=== PATIENT | female | born 1935 | race Caucasian/White ===

== ENCOUNTER 2017-11-27 03:45 | Emergency (ER) | payer MEDICARE, MEDICAID ==
[~2017-11-27] VITALS: Ht 162.6 cm; Wt 77.0 kg
[2017-11-27 04:35] LABS: BASOPHILS % (AUTO) 0.2 % (0-1); EOSINOPHILS # (AUTO) 0.2 X10'3 (0-0.9); EOSINOPHILS % (AUTO) 2.9 % (0-6); HEMATOCRIT 39.7 % (35.0-45.0); HEMOGLOBIN 13.5 g/dl (12.0-16.0); LYMPHOCYTES # (AUTO) 3.1 X10'3 (1.1-4.8); LYMPHOCYTES % (AUTO) 41.2 % (21-51); MEAN CORPUSCULAR HEMOGLOBIN 31.6 PG (27.0-31.0); MEAN CORPUSCULAR HGB CONC 33.9 % (33.0-36.5); MEAN CORPUSCULAR VOLUME 93.1 FL (78-98); MEAN PLATELET VOLUME 8.8 FL (7.4-10.4); MONOCYTES # (AUTO) 0.7 X10'3 (0-0.9); MONOCYTES % (AUTO) 8.7 % (2-12); NEUTROPHILS # (AUTO) 3.5 X10'3 (1.8-7.7); PLATELET COUNT 238 X10'3 (140-440); RED BLOOD COUNT 4.27 X10'6 (4.20-5.60); RED CELL DISTRIBUTION WIDTH 13.6 % (11.5-14.5); WHITE BLOOD COUNT 7.5 X10'3 (4.5-11.0)
[2017-11-27 04:46] LABS: PARTIAL THROMBOPLASTIN TIME 26 SECONDS (22-32); PROTHROMBIN TIME 9.9 SECONDS (9.0-12.0)
[2017-11-27 04:50] LABS: ALANINE AMINOTRANSFERASE 22 U/L (12-78); ALBUMIN 3.6 G/DL (3.4-5.0); ALBUMIN/GLOBULIN RATIO 0.9 (1.1-1.5); ALKALINE PHOSPHATASE 69 IU/L (46-116); ANION GAP 10 (8-16); ASPARTATE AMINO TRANSFERASE 16 U/L (10-37); BILIRUBIN,TOTAL 0.4 MG/DL (0.1-1.0); BLOOD UREA NITROGEN 13 MG/DL (7-18); BUN/CREATININE RATIO 16.7 (6.6-38.0); CALCIUM 8.9 MG/DL (8.5-10.1); CHLORIDE 106 MMOL/L (99-107); CREATININE 0.78 MG/DL (0.40-0.90); GLUCOSE 115 MG/DL (70-104); LIPASE 164 U/L (73-393); MAGNESIUM 2.1 MG/DL (1.5-2.4); POTASSIUM 4.2 MMOL/L (3.5-5.1); SODIUM 141 MMOL/L (135-145); TOTAL CARBON DIOXIDE 24.7 MMOL/L (24-32); TOTAL PROTEIN 7.7 G/DL (6.4-8.2); eGFR 71 ML/MIN
[2017-11-27 05:11] LABS: CLARITY,URINE SLIGHTLY CLOUDY (Clear); COLOR,URINE YELLOW (Yellow); GLUCOSE, URINE NEGATIVE (Neg); KETONES,URINE NEGATIVE (Neg); LEUKOCYTE ESTERASE ,URINE SMALL (Neg); NITRITES, URINE NEGATIVE (Neg); OCCULT BLOOD,URINE TRACE-INTACT (Neg); PH,URINE 6.5 (4.8-8.0); PROTEIN,URINE NEGATIVE (Neg); UROBILINOGEN,URINE 0.2 E.U/dL (0.2-1.0)
[2017-11-27 05:16] LABS: UA COLLECTION TYPE CLN CATCH MIDSTREAM
[2017-11-27 05:17] LABS: BACTERIA,URINE FEW /HPF (Neg); RBC,URINE 0-2 /HPF (0-2); SQUAMOUS EPITHELIAL CELL,UR MODERATE /LPF (FEW)
[2017-11-27] MEDS ORDERED: CIPR-230 PO (05:27)
[2017-11-27 05:38] VITALS: BP 140/80
[2017-11-27] MEDS ORDERED: ciprofloxacin 500MG tablet PO ONE (06:00)
== END 2017-11-27 05:40 | disposition home or self-care (01) ==
LOC: ER 03:45
DX: M54.5 Low back pain (principal); R10.9 Unspecified abdominal pain; N39.0 Urinary tract infection, site not specified
CPT/HCPCS: 36415; 71045; 72131; 74176; 80053; 81001; 83690; 83735; 85025; 85610; 85730; 87088; 99285

== ENCOUNTER 2018-05-15 12:34 | Emergency (ER) | payer MEDICARE, MEDICAID ==
[~2018-05-15] VITALS: Ht 162.6 cm; Wt 79.7 kg
[2018-05-15 13:14] VITALS: BP 171/87
[2018-05-15 13:36] LABS: CLARITY,URINE SLIGHTLY CLOUDY (Clear); COLOR,URINE YELLOW (Yellow); GLUCOSE, URINE NEGATIVE (Neg); KETONES,URINE NEGATIVE (Neg); LEUKOCYTE ESTERASE ,URINE NEGATIVE (Neg); NITRITES, URINE NEGATIVE (Neg); OCCULT BLOOD,URINE MODERATE (Neg); PH,URINE 5.5 (4.8-8.0); PROTEIN,URINE NEGATIVE (Neg); UROBILINOGEN,URINE 0.2 E.U/dL (0.2-1.0)
[2018-05-15 13:42] LABS: UA COLLECTION TYPE CLN CATCH MIDSTREAM
[2018-05-15 13:53] LABS: MUCUS STRANDS MANY /LPF (Neg); SQUAMOUS EPITHELIAL CELL,UR MANY /LPF (FEW)
[2018-05-15 13:55] LABS: BACTERIA,URINE NONE SEEN /HPF (Neg); RBC,URINE 0-2 /HPF (0-2); WBC,URINE 0-4 /HPF (0-4)
== END 2018-05-15 16:47 | disposition left against medical advice (07) ==
LOC: ER 12:34
DX: N39.0 Urinary tract infection, site not specified (principal); Z53.21 Procedure and treatment not carried out due to patient leaving prior to being seen by health care provider
CPT/HCPCS: 81001; 99281

== ENCOUNTER 2019-02-07 17:26 | Emergency (ER) | payer MEDICARE, MEDICAID ==
[~2019-02-07] VITALS: Ht 162.6 cm; Wt 86.4 kg
[2019-02-07 17:56] LABS: BASOPHILS % (AUTO) 0.5 % (0-1); EOSINOPHILS # (AUTO) 0.1 X10'3 (0-0.9); EOSINOPHILS % (AUTO) 1.8 % (0-6); HEMOGLOBIN 12.7 g/dl (12.0-16.0); LYMPHOCYTES # (AUTO) 3.1 X10'3 (1.1-4.8); LYMPHOCYTES % (AUTO) 42.2 % (21-51); MEAN CORPUSCULAR HEMOGLOBIN 32.1 PG (27.0-31.0); MEAN CORPUSCULAR HGB CONC 34.5 g/dL (33.0-36.5); MEAN CORPUSCULAR VOLUME 93.1 FL (78-98); MEAN PLATELET VOLUME 8.9 FL (7.4-10.4); MONOCYTES # (AUTO) 0.7 X10'3 (0-0.9); MONOCYTES % (AUTO) 9.8 % (2-12); NEUTROPHILS # (AUTO) 3.4 X10'3 (1.8-7.7); NEUTROPHILS % (AUTO) 45.7 % (42-75); PLATELET COUNT 215 X10'3 (140-440); RED BLOOD COUNT 3.97 X10'6 (4.20-5.60); RED CELL DISTRIBUTION WIDTH 13.8 % (11.5-14.5); WHITE BLOOD COUNT 7.4 X10'3 (4.5-11.0)
[2019-02-07 18:19] LABS: PARTIAL THROMBOPLASTIN TIME 25 SECONDS (22-32)
[2019-02-07 18:43] LABS: ALANINE AMINOTRANSFERASE 21 U/L (12-78); ALBUMIN 3.3 G/DL (3.4-5.0); ALBUMIN/GLOBULIN RATIO 0.8 (1.1-1.5); ALKALINE PHOSPHATASE 67 IU/L (46-116); ANION GAP 7 (8-16); ASPARTATE AMINO TRANSFERASE 15 U/L (10-37); BILIRUBIN,TOTAL 0.3 MG/DL (0.1-1.0); BLOOD UREA NITROGEN 13 MG/DL (7-18); BUN/CREATININE RATIO 15.9 (6.6-38.0); CALCIUM 8.5 MG/DL (8.5-10.1); CHLORIDE 106 MMOL/L (99-107); CREATININE 0.82 MG/DL (0.40-0.90); GLUCOSE 123 MG/DL (70-104); SODIUM 139 MMOL/L (135-145); TOTAL CARBON DIOXIDE 26.1 MMOL/L (24-32); TOTAL PROTEIN 7.2 G/DL (6.4-8.2); eGFR 67 ML/MIN
[2019-02-07 19:24] LABS: CLARITY,URINE CLEAR (Clear); COLOR,URINE STRAW (Yellow); GLUCOSE, URINE NEGATIVE (Neg); KETONES,URINE NEGATIVE (Neg); LEUKOCYTE ESTERASE ,URINE NEGATIVE (Neg); NITRITES, URINE NEGATIVE (Neg); OCCULT BLOOD,URINE TRACE-INTACT (Neg); PH,URINE 6.5 (4.8-8.0); PROTEIN,URINE NEGATIVE (Neg); UROBILINOGEN,URINE 0.2 E.U/dL (0.2-1.0)
[2019-02-07 19:25] LABS: UA COLLECTION TYPE CLN CATCH MIDSTREAM
[2019-02-07 19:34] LABS: SQUAMOUS EPITHELIAL CELL,UR FEW /LPF (FEW)
[2019-02-07 19:35] LABS: RBC,URINE 0-2 /HPF (0-2)
[2019-02-07 19:36] LABS: BACTERIA,URINE NONE SEEN /HPF (Neg); WBC,URINE NONE SEEN /HPF (0-4)
[2019-02-07 19:50] VITALS: BP 120/76
== END 2019-02-07 20:31 | disposition home or self-care (01) ==
LOC: ER 17:26
DX: R07.89 Other chest pain (principal)
CPT/HCPCS: 36415; 71045; 80053; 81001; 84484; 85025; 85610; 85730; 87088; 93005; 99284

== ENCOUNTER 2019-05-09 12:22 | Emergency (ER) | payer MEDICARE, MEDICAID ==
[~2019-05-09] VITALS: Ht 162.6 cm; Wt 82.7 kg
[2019-05-09 13:19] LABS: CLARITY,URINE CLEAR (Clear); COLOR,URINE YELLOW (Yellow); GLUCOSE, URINE NEGATIVE (Neg); KETONES,URINE TRACE mg/dl (Neg); LEUKOCYTE ESTERASE ,URINE NEGATIVE (Neg); NITRITES, URINE NEGATIVE (Neg); OCCULT BLOOD,URINE SMALL (Neg); PROTEIN,URINE NEGATIVE (Neg); UROBILINOGEN,URINE 0.2 E.U/dL (0.2-1.0)
[2019-05-09 13:26] LABS: BASOPHILS % (AUTO) 0.4 % (0-1); EOSINOPHILS # (AUTO) 0.1 X10'3 (0-0.9); HEMATOCRIT 40.2 % (35.0-45.0); HEMOGLOBIN 13.4 g/dl (12.0-16.0); LYMPHOCYTES # (AUTO) 2.7 X10'3 (1.1-4.8); LYMPHOCYTES % (AUTO) 34.9 % (21-51); MEAN CORPUSCULAR HEMOGLOBIN 31.3 PG (27.0-31.0); MEAN CORPUSCULAR HGB CONC 33.3 g/dL (33.0-36.5); MEAN CORPUSCULAR VOLUME 93.9 FL (78-98); MEAN PLATELET VOLUME 8.9 FL (7.4-10.4); MONOCYTES # (AUTO) 0.6 X10'3 (0-0.9); MONOCYTES % (AUTO) 8.2 % (2-12); NEUTROPHILS # (AUTO) 4.3 X10'3 (1.8-7.7); NEUTROPHILS % (AUTO) 55.5 % (42-75); PLATELET COUNT 216 X10'3 (140-440); RED BLOOD COUNT 4.28 X10'6 (4.20-5.60); RED CELL DISTRIBUTION WIDTH 14.1 % (11.5-14.5); WHITE BLOOD COUNT 7.8 X10'3 (4.5-11.0)
[2019-05-09 13:29] LABS: UA COLLECTION TYPE CLN CATCH MIDSTREAM
[2019-05-09] MEDS ORDERED: ibuprofen tablet 400 MG TABLET PO ONE (13:35)
[2019-05-09] MEDS ORDERED: acetaminophen 325mg tablet PO ONE (13:35)
[2019-05-09 13:39] LABS: BACTERIA,URINE NONE SEEN /HPF (Neg); MUCUS STRANDS FEW /LPF (Neg); RBC,URINE 0-2 /HPF (0-2); SQUAMOUS EPITHELIAL CELL,UR FEW /LPF (FEW); WBC,URINE 0-4 /HPF (0-4)
[2019-05-09 13:40] VITALS: BP 146/95
[2019-05-09 13:41] LABS: ALANINE AMINOTRANSFERASE 25 U/L (12-78); ALBUMIN 3.7 G/DL (3.4-5.0); ALBUMIN/GLOBULIN RATIO 0.9 (1.1-1.5); ALKALINE PHOSPHATASE 59 IU/L (46-116); ANION GAP 11 (8-16); ASPARTATE AMINO TRANSFERASE 15 U/L (10-37); BILIRUBIN,TOTAL 0.3 MG/DL (0.1-1.0); BLOOD UREA NITROGEN 16 MG/DL (7-18); BUN/CREATININE RATIO 16.7 (6.6-38.0); CALCIUM 8.6 MG/DL (8.5-10.1); CHLORIDE 107 MMOL/L (99-107); CREATININE 0.96 MG/DL (0.40-0.90); GLUCOSE 112 MG/DL (70-104); SODIUM 141 MMOL/L (135-145); TOTAL CARBON DIOXIDE 23.5 MMOL/L (24-32); TOTAL PROTEIN 7.7 G/DL (6.4-8.2); eGFR 56 ML/MIN
[2019-05-09] MEDS ORDERED: LIDOcaine 5% patch TP ONE (13:45)
== END 2019-05-09 14:27 | disposition home or self-care (01) ==
LOC: ER 12:22
DX: M54.5 Low back pain (principal); R30.0 Dysuria; R94.31 Abnormal electrocardiogram [ECG] [EKG]
CPT/HCPCS: 36415; 80053; 81001; 85025; 85610; 93005; 99284

== ENCOUNTER 2022-06-05 14:58 | Emergency (ER) | payer MEDICARE, MEDICAID ==
[~2022-06-05] VITALS: Ht 162.6 cm; Wt 75.0 kg
[2022-06-05 15:49] LABS: BASOPHILS % (AUTO) 0.6 % (0-1); EOSINOPHILS # (AUTO) 0.1 X10'3 (0-0.9); EOSINOPHILS % (AUTO) 1.4 % (0-6); HEMATOCRIT 38.1 % (35.0-45.0); HEMOGLOBIN 13.1 g/dl (12.0-16.0); LYMPHOCYTES # (AUTO) 2.7 X10'3 (1.1-4.8); LYMPHOCYTES % (AUTO) 39.2 % (21-51); MEAN CORPUSCULAR HEMOGLOBIN 32.3 PG (27.0-31.0); MEAN CORPUSCULAR HGB CONC 34.3 g/dL (33.0-36.5); MEAN CORPUSCULAR VOLUME 94.3 FL (78-98); MONOCYTES # (AUTO) 0.6 X10'3 (0-0.9); MONOCYTES % (AUTO) 8.1 % (2-12); NEUTROPHILS # (AUTO) 3.5 X10'3 (1.8-7.7); NEUTROPHILS % (AUTO) 50.7 % (42-75); PLATELET COUNT 226 X10'3 (140-440); RED BLOOD COUNT 4.05 X10'6 (4.20-5.60); RED CELL DISTRIBUTION WIDTH 13.7 % (11.5-14.5); WHITE BLOOD COUNT 6.8 X10'3 (4.5-11.0)
[2022-06-05 16:00] LABS: ALANINE AMINOTRANSFERASE 19 U/L (12-78); ALBUMIN 3.6 G/DL (3.4-5.0); ALBUMIN/GLOBULIN RATIO 0.9 (1.1-1.5); ALKALINE PHOSPHATASE 77 IU/L (46-116); ANION GAP 10 (8-16); ASPARTATE AMINO TRANSFERASE 13 U/L (10-37); BILIRUBIN,TOTAL 0.1 MG/DL (0.1-1.0); BLOOD UREA NITROGEN 13 MG/DL (7-18); BUN/CREATININE RATIO 15.7 (6.6-38.0); CALCIUM 8.9 MG/DL (8.5-10.1); CHLORIDE 106 MMOL/L (99-107); CREATININE 0.83 MG/DL (0.40-0.90); GLUCOSE 137 MG/DL (70-104); LIPASE 265 U/L (73-393); POTASSIUM 3.7 MMOL/L (3.5-5.1); SODIUM 143 MMOL/L (135-145); TOTAL CARBON DIOXIDE 27.4 MMOL/L (24-32); TOTAL PROTEIN 7.4 G/DL (6.4-8.2); eGFR 65 ML/MIN
[2022-06-05 18:13] VITALS: BP 147/78
== END 2022-06-05 18:16 | disposition home or self-care (01) ==
LOC: ER 14:59
DX: R42 Dizziness and giddiness (principal); R53.1 Weakness
CPT/HCPCS: 36415; 80053; 83690; 85025; 93005; 99284

== ENCOUNTER 2023-04-27 05:22 | Emergency (ER) | payer MEDICARE, MEDICAID ==
[~2023-04-27] VITALS: Ht 162.6 cm; Wt 86.4 kg
[2023-04-27] MEDS ORDERED: naproxen 500mg tablet PO ONE (07:40)
[2023-04-27] MEDS ORDERED: acetaminophen 325mg tablet PO ONE (07:40)
[2023-04-27 08:18] LABS: BILIRUBIN,URINE NEGATIVE (Neg); CLARITY,URINE SLIGHTLY CLOUDY (Clear); COLOR,URINE YELLOW (Yellow); GLUCOSE, URINE NEGATIVE (Neg); KETONES,URINE NEGATIVE (Neg); LEUKOCYTE ESTERASE ,URINE TRACE (Neg); NITRITES, URINE NEGATIVE (Neg); OCCULT BLOOD,URINE NEGATIVE (Neg); PROTEIN,URINE NEGATIVE (Neg); UROBILINOGEN,URINE 0.2 E.U/dL (0.2-1.0)
[2023-04-27 08:21] LABS: UA COLLECTION TYPE CLN CATCH MIDSTREAM
[2023-04-27 08:25] LABS: RBC,URINE NONE SEEN /HPF (0-2); WBC,URINE 0-4 /HPF (0-4)
[2023-04-27 08:26] LABS: BACTERIA,URINE 2+ /HPF (Neg); MUCUS STRANDS NONE SEEN /LPF (Neg); SQUAMOUS EPITHELIAL CELL,UR MANY /LPF (FEW)
[2023-04-27 08:30] VITALS: BP 158/80; PULSE 82; RESP 16; O2SAT 97
[2023-04-27 09:53] VITALS: TEMP 98.4
== END 2023-04-27 09:55 | disposition home or self-care (01) ==
LOC: ER 05:23
DX: M25.551 Pain in right hip (principal)
CPT/HCPCS: 73502; 81001; 99284

== ENCOUNTER 2025-03-03 12:08 | Emergency (ER) | payer MEDICARE, MEDICAID ==
[~2025-03-03] VITALS: Ht 162.6 cm; Wt 49.0 kg
--- NOTE | 2025-03-03 13:49 | ELECTROCARDIOGRAPH REPORT ---
[facility] Test Date: 2025-03-03 Test Time: 13:48:11 Pat Name: YOUNG YEH Department: [facility]- Patient ID: [id number] Room: Gender: F Psych Coordinator: : 1935 Requested By: DEMETRIS YODER Order Number: [id number] Reading MD: Measurements Intervals [place] Rate: 63 P: 79 GA: 205 QRS: 68 QRSD: 95 T: 74 QT: 421 QTc: 431 Interpretive Statements Sinus rhythm Baseline wander in lead(s) II,aVF Please click the below link to view image of tracing.
--- NOTE | 2025-03-03 14:16 | RADIOLOGY REPORT ---
CHEST RADIOGRAPH Indication: SEPSIS Technique: Single frontal view of the chest was obtained COMPARISON: CHEST,SINGLE VIEW on DOS: 02/07/19 FINDINGS: Lines and Tubes: None Lungs: Increased interstitial prominence Pleura: No effusion. No pneumothorax. Cardiomediastinal contours: Cardiomegaly Bones: Unremarkable IMPRESSION: Viral pneumonia versus pulmonary edema
[2025-03-03 14:35] LABS: MEAN PLATELET VOLUME 9.1 FL (7.4-10.4); RED CELL DISTRIBUTION WIDTH 14.4 % (11.5-14.5)
[2025-03-03 14:40] LABS: LEUKOCYTE ESTERASE ,URINE NEGATIVE (Neg); NITRITES, URINE NEGATIVE (Neg); OCCULT BLOOD,URINE NEGATIVE (Neg)
[2025-03-03 14:42] LABS: UA COLLECTION TYPE NON-SPECIFIED
[2025-03-03 14:48] VITALS: BP 146/66; PULSE 71; RESP 16; TEMP 98.2; O2SAT 96
[2025-03-03 14:49] LABS: CREATININE 0.80 MG/DL (0.40-0.90); PRO BRAIN NATRIURETIC PEPTIDE 118 PG/ML (0-450); TOTAL CARBON DIOXIDE 28.0 MMOL/L (24-32); eCRCL 37 ML/MIN; eGFR 68 ML/MIN
--- NOTE | 2025-03-03 15:04 | Physician Documentation ---
History of Present Illness ~ Chief Complaint: See Chief Complaint Stated Complaint: FALL Time Seen by MD: 13:29 Primary Medical Doctor: none Mode of Arrival: EMS HPI Patient is seen today having been brought in by ambulance after she was found lying on her floor at her home. Patient states she was able to lay herself down gently and denies any loss of consciousness and denies any head strike or head injury or headache. Patient states this has happened a few times of for where she has kind of felt weak in her legs and sat herself down gently in been unable to get back up for a short period of time. Patient denies any current chest pain or shortness of breath or abdominal pain or nausea, vomiting, diarrhea. Patient has no other concern or complaint at this time. Patient denies any significant past medical history and states she does not see a doctor regularly in his not take any prescription medications and is in general good health. Tetanus within 5 Years?: No Medication Reconciliation Allergies: Coded Allergies: No Known Allergies (Unverified , 05/09/19) Past Medical History Past Medical History: No Pertinent History Past Surgical History: noncontributory Alcohol Use: None Drug Use: none Lives with: Alone Lives In: Home Review of Systems Constitutional: Denies: chills, fever, weakness Eyes: Denies: pain, blurred vision ENT: Denies: ear pain, nose pain, throat pain, mouth pain Respiratory: Denies: cough, shortness of breath Cardiovascular: Denies: chest pain, palpitations Gastrointestinal: Denies: abdominal pain, nausea, vomiting Genitourinary: Denies: burning, dysuria Female Genitalia: Denies: vaginal discharge, pelvic pain Neurological: Denies: headache, dizziness Musculoskeletal: Denies: pain, swelling Integumentary: Denies: rash, lesions Allergic/Immunologic: Denies: hives, itching Hematologic/Lymphatic: Denies: no symptoms reported Psychiatric: Denies: depression, anxiety Physical Exam Vital Signs: Temperature: 98.2, Heart Rate: 71, Respiratory Rate: 16, BP: 146/66, Pulse Oximetry: 96, Weight: 49.000 Oxygen Flow Rate: 0 Physical Exam General: Awake and Alert, no acute distress. HEENT: Conjunctiva pink, Sclera clear, Mucus Membranes moist. Neck: Supple without masses and tenderness. Resp: Unlabored. Lungs clear to auscultation bilaterally. Heart: Regular Rate and rhythm, normal S1 and S2 without murmur, rub or gallop. Abdomen: Soft and non tender no organomegaly Extremities: No cyanosis,clubbing or edema. Skin: Warm and Dry. Progress Results/Orders Results/Orders Orders - YODERDEMETRIS R PAC Chest,Single View (03/03/25 13:56) Hs Troponin I W Calculations (03/03/25 15:34) Completed Orders - DEMETRIS YODER R PAC Electrocardiogram (03/03/25 13:34) Cbc/Diff (03/03/25 13:34) MG (03/03/25 13:34) Urinalysis, Cult If Indicated (03/03/25 13:34) Chest,Single View (03/03/25 13:56) Procalcitonin (03/03/25 13:34) BMP (03/03/25 13:34) Hs Troponin I W Calculations (03/03/25 13:34) PBNP (03/03/25 13:34) Vital Signs 03/03/25 03/03/25 03/03/25 12:13 12:32 14:48 Temp 98.2 Pulse 75 71 Resp 16 18 16 B/P (MAP) 140/76 146/66 (92) Pulse Ox 96 96 O2 Flow Rate 0 Laboratory Tests Test 03/03/25 14:01 03/03/25 14:32 White Blood Count 6.1 Red Blood Count 3.95 L Hemoglobin 12.3 Hematocrit 36.7 Mean Corpuscular Volume 93.0 Mean Corpuscular Hemoglobin 31.1 H Mean Corpuscular Hemoglobin Concent 33.4 Red Cell Distribution Width 14.4 Platelet Count 210 Mean Platelet Volume 9.1 Neutrophils (%) (Auto) 46.4 Lymphocytes (%) (Auto) 41.5 Monocytes (%) (Auto) 10.0 Eosinophils (%) (Auto) 1.5 Basophils (%) (Auto) 0.6 Neutrophils # (Auto) 2.8 Lymphocytes # (Auto) 2.5 Monocytes # (Auto) 0.6 Eosinophils # (Auto) 0.1 Basophils # (Auto) 0.0 CBC Comment Sodium Level 138 Potassium Level 4.0 Chloride Level 105 Carbon Dioxide Level 28.0 Anion Gap 5 L Blood Urea Nitrogen 16 Creatinine 0.80 Estimated GFR/1.73 m2 68 BUN/Creatinine Ratio 20.0 Glucose Level 100 Calcium Level 8.7 Magnesium Level 2.1 Troponin I High Sensitivity 8 Pro-B-Type Natriuretic Peptide 118 Albumin 3.4 Procalcitonin < 0.05 Chemistry Comments Urine Specimen Description Non-specified Urine Color Yellow Urine Clarity Clear Urine pH 7.0 Urine Specific [place] 1.020 Urine Protein Negative Urine Glucose (UA) Negative Urine Ketones Negative Urine Occult Blood Negative Urine Nitrite Negative Urine Bilirubin Negative Urine Urobilinogen 1.0 Urine Leukocyte Esterase Negative Urine Culture Indicated Not ind Volume Urine Centrifuged 10 ml Urine Comment Medical Decision Making Findings Patient is seen today having been brought in by ambulance after she was found lying on her floor at her home. Patient states she was able to lay herself down gently and denies any loss of consciousness and denies any head strike or head injury or headache. Patient states this has happened a few times of for where she has kind of felt weak in her legs and sat herself down gently in been unable to get back up for a short period of time. Patient denies any current chest pain or shortness of breath or abdominal pain or nausea, vomiting, diarrhea. Patient has no other concern or complaint at this time. Patient denies any significant past medical history and states she does not see a doctor regularly in his not take any prescription medications and is in general good health. Patient refuses admission to the hospitalist time. Patient states she is feeling fine and wants to go home. Patient labs are relatively unremarkable. Patient denies any respiratory symptoms and patient's chest x-ray did show possible congestion however patient's labs are benign and showed no sign of elevated pro BNP and no elevated white count and patient has no history of cough or respiratory symptoms or shortness of breath. Patient will follow up with primary care in 2-5 days if no better as needed sooner. Return to ED with any worsening, concerning or changing symptoms. Departure Disposition: 01 HOME / SELF CARE / HOMELESS Impression: Primary Impression: Ground-level fall Condition: Improved Discharge Instructions: Fall Prevention in the Home, Adult, [id number] Additional Instructions: Patient refuses admission to the hospitalist time. Patient states she is feeling fine and wants to go home. Patient labs are relatively unremarkable. Patient denies any respiratory symptoms and patient's chest x-ray did show possible congestion however patient's labs are benign and showed no sign of elevated pro BNP and no elevated white count and patient has no history of cough or respiratory symptoms or shortness of breath. Patient will follow up with primary care in 2-5 days if no better as needed sooner. Return to ED with any worsening, concerning or changing symptoms. I strongly advised patient follow up with primary care and start some kind of physical therapy regimen. Referrals: NO PRIMARY CARE PROVIDER (PCP) Additional Comment Additional Comment Patient refused admission to the hospital today. Signature Scribe Signature: No scribe Attestation: No scribe DEMETRIS YODER PAC Mar 03, 2025 15:04
== END 2025-03-03 15:44 | disposition home or self-care (01) ==
LOC: ER 12:08
DX: R53.1 Weakness (principal); R06.02 Shortness of breath; W18.30XA Fall on same level, unspecified, initial encounter; Y93.89 Activity, other specified; Y92.89 Other specified places as the place of occurrence of the external cause; Y99.8 Other external cause status
CPT/HCPCS: 36415; 71045; 80048; 81003; 83735; 83880; 84145; 84484; 85025; 93005; 99285

== ENCOUNTER 2025-05-10 08:51 | Emergency (ER) | payer MEDICARE, MEDICAID ==
[~2025-05-10] VITALS: Ht 162.6 cm; Wt 70.7 kg
[2025-05-10 08:54] VITALS: TEMP 97.7
--- NOTE | 2025-05-10 09:32 | Physician Documentation ---
History of Present Illness Chief Complaint: Abdominal Pain Stated Complaint: LOWER ABD PAIN Time Seen by MD: 09:06 Primary Medical Doctor: none Source: patient (8) Mode of Arrival: EMS, Stretcher HPI Patient comes in for evaluation of right lower quadrant pain. She reports that other than an ER visit this year she has not seen a doctor in 15-20 years, and does not think she has any medical problems. She woke this morning at 4:00 a.m. to feed her pets and had no pain, but when she got up again a couple of hours later she had a severe pain in the right lower quadrant/suprapubic area. This was the worse pain she had ever experienced, new to her, she took no medications for it. She denies any associated nausea, vomiting, fever, but reports chronic urinary symptoms. She describes what sounds like pelvic floor laxity and some swelling and obstruction to the urethra, going on for about a year or so. This causes her frequency and urgency and dysuria, but this is unchanged since the last year. Last bowel movement was normal, this morning. Medication Reconciliation Allergies: Coded Allergies: No Known Allergies (Unverified , 05/09/19) Scheduled PRN Hydrocortisone (Anusol-Hc), 1 APPLIC TOP Q8H PRN for pain Past Medical History Past Medical History: No Pertinent History Past Surgical History: noncontributory Smoking Status: Never smoker Alcohol Use: None Drug Use: none Lives with: Alone Lives In: Home Review of Systems All Other Systems at this time: Reviewed and Negative Physical Exam Vital Signs: Temperature: 97.7, Heart Rate: 80, Respiratory Rate: 18, BP: 151/90, Pulse Oximetry: 95, Weight: 70.650 Oxygen Flow Rate: 0 Physical Exam General: Pt is awake, alert, oriented x4 in no acute distress and well appearing. Very talkative Head: Normocephalic and atraumatic. Eyes: Conjunctiva normal. ENT: Mucous membranes moist. Neck: Supple. Chest: Clear to auscultation bilaterally, without rales, rhonchi, or wheezes. There is no accessory muscle use or retractions. Cardiac: Regular rate and rhythm without murmurs, gallops or rubs. Palpation of the chest wall is normal. Abd: Soft, nondistended, tender at the lateral aspect of the RLQ, with n ormoactive bowel sounds. No guarding or rebound. No significant TTP over the bladder. Extremities: Within normal limits without cyanosis, clubbing, or edema. Skin: [place], warm and dry with no significant rash appreciated. Neuro: Cranial nerves II-XII grossly intact. Progress Progress Note When I went to re-evaluate the patient, she told me that she never had any pain in the right lower abdomen or groin, and that it always been on the right buttock. This was after her workup, which showed nonspecific findings on her CT scan and laboratory workup/urinalysis which were essentially normal. I examined the patient and she did not have any tenderness over the buttocks, the spine, or with range of motion of the leg. Ultimately she told me that she has some anal pain, when she has to poop. She has a cream that she has been using that helps, and she states that her bowel movement this morning was fine. I examined the area today, found no perianal erythema, tenderness, or swelling. There was no thrombosed external hemorrhoid. There was a couple of small areas of hemorrhoid externally, I did not appreciate any on internal examination, and guaiac was negative. I am going to send the patient home with suppositories for hemorrhoids, patient declines to stay for further evaluation. This patient has no primary care doctor, with whom she can follow-up. I have advised her to try to establish care, and also asked her to have her daughter come to pick her up so we can discuss follow-up with her as well. Results/Orders Results/Orders Vital Signs 05/10/25 05/10/25 08:54 09:05 Temp 97.7 Pulse 80 Resp 18 18 B/P (MAP) 151/90 Pulse Ox 95 O2 Flow Rate 0 Medical Decision Making Additional Comments Patient without any tenderness at this time over the abdomen, reassuring workup. She now tells me that all of her pain has been referable to the anal area, likely secondary to small hemorrhoids. No GI bleeding noted today, normal white blood cell count and normal H and H. she is to be sent home with hemorrhoid hetal keo, I have advised her to follow up by establishing with an outpatient physician, we will discuss this with her daughter as well when her daughter arrives. Departure Time of Disposition: 12:49 Disposition: 01 HOME / SELF CARE / HOMELESS Impression: Primary Impression: Hemorrhoid Qualified Codes: K64.9 - Unspecified hemorrhoids Condition: Stable Discharge Instructions: Hemorrhoids Additional Instructions: Take a high-fiber diet and drink a lot of water. Sitz baths may help when you do have discomfort. I am going to prescribe you a medicated cream which will help as well. You are having normal bowel movements now without blood, but if you should develop difficulty moving your bowels, passing blood, abdominal pain, fever, or any other concerns, you should return to the emergency department. It is critical that you establish care with a local physician for continuing outpatient care. Your daughter can help you with this. Referrals: NO PRIMARY CARE PROVIDER (PCP) Prescriptions Hydrocortisone (Anusol-Hc) 2.5 % Cream..g. 1 APPLIC TOP Q8H PRN for pain, #30 GM 0 Refills Prov: BENITA ROBLERO MD 05/10/25 Education Educated: Patient Educated regarding: diagnosis, treatment BENITA ROBLERO MD May 10, 2025 09:32
[2025-05-10 10:06] LABS: MEAN PLATELET VOLUME 8.9 FL (7.4-10.4); RED CELL DISTRIBUTION WIDTH 14.1 % (11.5-14.5)
[2025-05-10 10:18] LABS: CREATININE 0.82 MG/DL (0.40-0.90); TOTAL CARBON DIOXIDE 26.6 MMOL/L (24-32); eCRCL 40 ML/MIN; eGFR 66 ML/MIN
[2025-05-10] MEDS ORDERED: iohexol 300mg/ml 100ml inj. ONE (10:22)
[2025-05-10 11:03] LABS: LEUKOCYTE ESTERASE ,URINE NEGATIVE (Neg); NITRITES, URINE NEGATIVE (Neg); OCCULT BLOOD,URINE TRACE-INTACT (Neg)
[2025-05-10 11:06] LABS: UA COLLECTION TYPE CLN CATCH MIDSTREAM
[2025-05-10 11:09] LABS: MUCUS STRANDS FEW /LPF (Neg); SQUAMOUS EPITHELIAL CELL,UR MANY /LPF (FEW)
--- NOTE | 2025-05-10 11:24 | RADIOLOGY REPORT ---
CLINICAL INFORMATION: Abdominal pain. TECHNIQUE: Axial CT images of the abdomen and pelvis were obtained after the uneventful administration of 100 mL Omnipaque 300 IV contrast. Coronal and sagittal reformatted images were obtained, reviewed, and stored. All CT scans at this medical facility are performed using dose modulation techniques as appropriate to a performed exam including the following: Automated exposure control was utilized; adjustment of the MA and/or KV according to patient size; and use of iterative reconstruction technique. CTDIvol = 14.31 mGy DLP = 699.24 mGy-cm COMPARISON: None FINDINGS: Lung bases: Patchy opacities in the right middle lobe partially visualized, possibly infectious or inflammatory in nature. Liver: Hepatic steatosis. Multiple hepatic cysts. Biliary: No calcified gallstones or biliary ductal dilatation. Spleen: Unremarkable. Pancreas: Small fluid density lesion at the body of the pancreas in close proximity to the main pancreatic duct measuring up to 0.7 cm, possibly communicating with the pancreatic duct. Adrenal glands: Unremarkable. No mass. Kidneys: No hydronephrosis or mass. Aorta/Vascular: Dense arterial calcification. No abdominal aortic aneurysm. Retroperitoneum: No mass or lymphadenopathy. Bowel/mesentery: Nonspecific nondilated fluid-filled small bowel loops. No small bowel obstruction. No free air or free fluid. Appendix is visualized and appears unremarkable. Scattered colonic diverticula without adjacent inflammatory changes to suggest diverticulitis. Pelvic organs: Prominent bilateral adnexal veins. Bladder: Unremarkable. No mass. Abdominal wall: Small fat containing umbilical hernia. Small fat containing indirect inguinal hernia extending into the proximal aspect of the inguinal canal. Bones: No acute fracture or focal intraosseous lesion. IMPRESSION: 1. Scattered colonic diverticula without adjacent inflammatory changes to suggest diverticulitis. 2. Nonspecific nondilated fluid-filled small bowel loops. Findings may be seen with ileus or enteritis in the appropriate clinical setting. No small bowel obstruction. 3. 0.7 cm fluid density structure at the body of the pancreas, suspected pancreatic cyst. MRI with MRCP could be obtained to further evaluate if clinically indicated. Per ACR white paper on incidentally detected pancreatic cysts, for patient's greater than or equal to 80 years of age at presentation, t he decision to pursue imaging follow-up and/or EUS/FNA should be anchored to the patient's overall health and preferences, such workup is only advised if the patient is a surgical candidate. 4. Patchy opacities in the right middle lobe, possibly infectious or inflammatory in nature. 5. Small fat containing umbilical hernia. Small fat containing indirect inguinal hernia. 6. Additional findings as detailed above.
[2025-05-10] MEDS: normal saline 1000ML IV soln IVB ONE (12:06)
[2025-05-10] MEDS ORDERED: HYDR30CR79 TOP (12:51)
[2025-05-10 12:59] VITALS: BP 153/89; PULSE 68; RESP 16; O2SAT 97
== END 2025-05-10 13:02 | disposition home or self-care (01) ==
LOC: ER 08:51
DX: K64.9 Unspecified hemorrhoids (principal); Z60.2 Problems related to living alone
CPT/HCPCS: 36415; 74177; 80053; 81001; 83690; 85025; 99285; J7030; Q9967